=== PATIENT | male | born 1965 | race American Indian/Alaskan Native ===

== ENCOUNTER 2018-01-01 12:21 | Emergency (ER) | payer SELFPAY ==
[2018-01-01 12:55] VITALS: BP 154/91
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
== END 2018-01-01 16:31 | disposition home or self-care (01) ==
LOC: ED 12:21
DX: S80.11XA Contusion of right lower leg, initial encounter (principal); X58.XXXA Exposure to other specified factors, initial encounter; Y93.89 Activity, other specified; Y92.89 Other specified places as the place of occurrence of the external cause; Y99.8 Other external cause status
CPT/HCPCS: 99283